=== PATIENT | male | born 1995 | race Caucasian/White ===

== ENCOUNTER 2021-03-19 04:39 | Emergency (ER) | payer SELFPAY ==
[~2021-03-19] VITALS: Ht 170.2 cm; Wt 82.0 kg
[2021-03-19 04:49] VITALS: BP 133/79
[2021-03-19] MEDS ORDERED: ACETAMINOPHEN 500MG TABLET PO ONE (05:00)
== END 2021-03-19 05:15 | disposition home or self-care (01) ==
LOC: ER 04:39
DX: J02.9 Acute pharyngitis, unspecified (principal); Z76.0 Encounter for issue of repeat prescription
CPT/HCPCS: 99281